=== PATIENT | female | born 1955 | race Caucasian/White ===

== ENCOUNTER 2016-09-30 16:37 | Emergency (ER) | payer MEDICAID ==
[~2016-09-30 16:37] MED LIST: AMO500 PO; ASPIR 8181 MG PO; COL100 PO; DITROPAN XL10 MG PO; HUMI; HYDRALAZINE HCL25 MG PO; HYDROCHLOROTHIA25 MG PO; LAC PO; LANTUS SOLOS100 U/M1 SQ; METFORMIN ER500 M1 PO; METFORMIN HCL850 MG PO; METOPROLOL TART25 M1 PO; MOTRIN800 MG PO; NORCO1 TA2 PO; PRAVACHOL10 MG PO; PROZ20 PO; TRAMADOL HCL50 MG PO; ZESTRIL20 MG PO
[2016-09-30 16:50] VITALS: BP 134/91
== END 2016-09-30 20:00 | disposition left against medical advice (07) ==
LOC: ED 16:37
DX: Z53.21 Procedure and treatment not carried out due to patient leaving prior to being seen by health care provider (principal)

== ENCOUNTER 2016-10-18 10:51 | Inpatient (IN) | payer MEDICAID ==
[~2016-10-18] VITALS: Ht 165.1 cm; Wt 124.7 kg
[2016-10-18 11:59] LABS: BASOPHIL % 0.3 % (0-2); PLATELET COUNT 309 x10^3mcL (130-400); RED CELL DISTRIBUTION WIDTH 14.3 % (11.5-14.5)
[2016-10-18 12:02] LABS: CALCIUM 8.9 mg/dL (8.5-10.1); CARBON DIOXIDE 30.2 mmol/L (21-32); CHLORIDE SERUM 99 mmol/L (98-107); CREATININE SERUM 0.7 mg/dL (0.6-1.0); GFR1 > 60 mL/min; GLUCOSE SERUM 259 mg/dL (74-106); POTASSIUM SERUM 3.8 mmol/L (3.5-5.1); SODIUM SERUM 135 mmol/L (136-145)
[2016-10-18 12:07] LABS: ALBUMIN 3.3 g/dL (3.4-5.0); ALKALINE PHOSPHATASE 94 U/L (46-116); ALT/SGPT 44 U/L (14-59); AST/SGOT 40 U/L (15-37); BILIRUBIN TOTAL 0.35 mg/dL (0.20-1.00); TOTAL PROTEIN, SERUM 7.4 g/dL (6.4-8.2)
[2016-10-18 14:00] VITALS: BP 154/76
[2016-10-18 14:15] LABS: CHOLESTEROL/HDL RATIO 5.1; MAGNESIUM 1.7 mg/dL (1.8-2.4); T3 TOTAL 1.06 ng/mL
[2016-10-18 14:18] LABS: FREE T4 0.96 ng/dL (0.76-1.46); FREE THYROXINE INDEX 2.1 ug/dL (1.4-4.5); T4(THYROXINE) 6.8 ug/dL (4.7-13.3)
[2016-10-18 14:26] LABS: PHOSPHOROUS 3.9 mg/dL (2.5-4.9)
[2016-10-18 18:22] VITALS: BP 117/56
[2016-10-19 04:43] LABS: CALCIUM 8.6 mg/dL (8.5-10.1); CHLORIDE SERUM 102 mmol/L (98-107); CREATININE SERUM 0.8 mg/dL (0.6-1.0); GFR1 > 60 mL/min; GLUCOSE SERUM 225 mg/dL (74-106); MAGNESIUM 1.7 mg/dL (1.8-2.4); PHOSPHOROUS 5.7 mg/dL (2.5-4.9); POTASSIUM SERUM 4.3 mmol/L (3.5-5.1); SODIUM SERUM 138 mmol/L (136-145)
[2016-10-19 04:53] LABS: BASOPHIL % 0.6 % (0-2); PLATELET COUNT 320 x10^3mcL (130-400); RED CELL DISTRIBUTION WIDTH 14.5 % (11.5-14.5)
[2016-10-19 06:02] VITALS: BP 112/60
[2016-10-19 07:40] VITALS: BP 130/74
[2016-10-19 10:07] VITALS: BP 107/63
[2016-10-19 15:12] LABS: microscopic required? YES; urine erythrocyte 2+ (NEGATIVE)
[2016-10-19 15:16] LABS: AMPHETAMINE QUAL UR NONE DETECTED (NEG <=1000)
[2016-10-19 18:14] VITALS: BP 133/79
[2016-10-19 18:16] VITALS: BP 133/79
[2016-10-19] MEDS ORDERED: ADV200 PO (18:16)
[2016-10-19] MEDS ORDERED: METOPROLOL TART25 M1 PO (18:18)
[2016-10-19 18:46] VITALS: BP 133/79
== END 2016-10-19 19:10 | disposition home or self-care (01) | DRG 203 ==
LOC: ED 10:51 → DU 12:45
PROVIDERS: Emergency Medicine; ADMIT Family Medicine
DX: M94.0 Chondrocostal junction syndrome [Tietze] (principal); I50.43 Acute on chronic combined systolic (congestive) and diastolic (congestive) heart failure; E44.0 Moderate protein-calorie malnutrition; E83.42 Hypomagnesemia; D68.69 Other thrombophilia; E11.65 Type 2 diabetes mellitus with hyperglycemia; I10 Essential (primary) hypertension; E78.5 Hyperlipidemia, unspecified; M19.90 Unspecified osteoarthritis, unspecified site; F32.89 Other specified depressive episodes; Z79.84 Long term (current) use of oral hypoglycemic drugs; Z79.4 Long term (current) use of insulin; Z79.82 Long term (current) use of aspirin
CPT/HCPCS: 80307; 82962; 83880; 84439; J1815; J7030; Q0092

== ENCOUNTER 2017-02-28 13:33 | Emergency (ER) | payer MEDICAID ==
[~2017-02-28] VITALS: Ht 162.6 cm; Wt 119.3 kg
[~2017-02-28 13:33] MED LIST changes: +ADV200 PO
[2017-02-28 17:15] VITALS: BP 138/72
== END 2017-02-28 17:15 | disposition home or self-care (01) ==
LOC: ED 13:33
DX: G89.29 Other chronic pain (principal); M25.562 Pain in left knee; M25.561 Pain in right knee; I10 Essential (primary) hypertension; E11.9 Type 2 diabetes mellitus without complications; E78.5 Hyperlipidemia, unspecified; E66.9 Obesity, unspecified; F32.9 Major depressive disorder, single episode, unspecified
CPT/HCPCS: J1170; J1885; Q0092; Q0162

== ENCOUNTER 2017-05-22 14:17 | Emergency (ER) | payer MEDICAID ==
[2017-05-22 17:51] VITALS: BP 150/98
== END 2017-05-22 17:51 | disposition home or self-care (01) ==
LOC: ED 14:17
DX: K04.7 Periapical abscess without sinus (principal); E11.9 Type 2 diabetes mellitus without complications; I10 Essential (primary) hypertension; E78.00 Pure hypercholesterolemia, unspecified; E66.01 Morbid (severe) obesity due to excess calories; F32.9 Major depressive disorder, single episode, unspecified
CPT/HCPCS: 82962; J0690; J1885

== ENCOUNTER 2018-09-10 20:24 | Emergency (ER) | payer OTHER, MEDICAID ==
[~2018-09-10] VITALS: Ht 172.7 cm; Wt 121.6 kg
[2018-09-10 20:37] VITALS: Ht 172.7 cm; Wt 121.6 kg
[2018-09-10 21:24] LABS: CALCIUM 8.8 mg/dL (8.5-10.1); CARBON DIOXIDE 31.8 mmol/L (21-32); CHLORIDE SERUM 97 mmol/L (98-107); CREATININE SERUM 0.9 mg/dL (0.6-1.0); GFR1 > 60 mL/min; GLUCOSE SERUM 250 mg/dL (74-106); POTASSIUM SERUM 3.9 mmol/L (3.5-5.1); SODIUM SERUM 134 mmol/L (136-145)
[2018-09-10 21:25] LABS: BASOPHIL % 0.8 % (0-2); PLATELET COUNT 305 x10^3mcL (130-400); RED CELL DISTRIBUTION WIDTH 13.5 % (11.5-14.5)
[2018-09-10 21:28] LABS: ALKALINE PHOSPHATASE 103 U/L (46-116); ALT/SGPT 31 U/L (14-59); AST/SGOT 29 U/L (15-37); BILIRUBIN TOTAL 0.3 mg/dL (0.20-1.00)
[2018-09-10 21:29] LABS: ALBUMIN 3.2 g/dL (3.4-5.0)
[2018-09-11 00:33] VITALS: BP 154/78
== END 2018-09-11 00:33 | disposition home or self-care (01) ==
LOC: ED 20:24
DX: J11.1 Influenza due to unidentified influenza virus with other respiratory manifestations (principal); I10 Essential (primary) hypertension; E11.9 Type 2 diabetes mellitus without complications; Z90.49 Acquired absence of other specified parts of digestive tract; Z98.890 Other specified postprocedural states
CPT/HCPCS: 36415; 82962; J1885

== ENCOUNTER 2019-01-23 13:18 | Inpatient (IN) | payer OTHER, MEDICAID ==
[~2019-01-23] VITALS: Ht 165.1 cm; Wt 119.8 kg
[~2019-01-23 13:18] MED LIST changes: -METFORMIN HCL850 MG PO; +METFORMIN HYDR500 M1 PO; -PRAVACHOL10 MG PO; +PRAVACHOL20 MG PO
[2019-01-23 13:41] VITALS: Ht 165.1 cm; Wt 119.8 kg
--- NOTE | 2019-01-23 13:47 | NUR ---
PT BIB FAMILY C/C SHIN FEET/LEGS SWELLING WITH BURNING STS X [address] SARAH RIVERA
--- NOTE | 2019-01-23 13:54 | NUR ---
DR NAZARIO AT BEDSIDE TO [facility]
--- NOTE | 2019-01-23 14:09 | NUR ---
XRAY AT BEDSIDE
--- NOTE | 2019-01-23 14:41 | NUR ---
PLEASE ENTER FULL NAMES OF CORN MILLER/RN Patient data collected by (CORN MILLER):VIVEK SHI Assessment reviewed and completed by (RN): ELIZABETH ROSAS
[2019-01-23 14:45] LABS: BASOPHIL % 0.5 % (0-2); PLATELET COUNT 279 x10^3mcL (130-400)
[2019-01-23 14:49] LABS: RED CELL DISTRIBUTION WIDTH 14.6 % (11.5-14.5)
[2019-01-23 14:50] LABS: CALCIUM 8.6 mg/dL (8.5-10.1); CARBON DIOXIDE 32.2 mmol/L (21-32); CHLORIDE SERUM 103 mmol/L (98-107); CREATININE SERUM 0.7 mg/dL (0.6-1.0); GFR1 > 60 mL/min; GLUCOSE SERUM 362 mg/dL (74-106); POTASSIUM SERUM 4.2 mmol/L (3.5-5.1); SODIUM SERUM 140 mmol/L (136-145)
[2019-01-23 14:58] LABS: ALKALINE PHOSPHATASE 79 U/L (46-116); ALT/SGPT 26 U/L (14-59); AST/SGOT 21 U/L (15-37); BILIRUBIN TOTAL 0.3 mg/dL (0.20-1.00); TOTAL PROTEIN, SERUM 6.8 g/dL (6.4-8.2); URIC ACID 2.9 mg/dL (2.6-6.0)
[2019-01-23 15:02] LABS: ALBUMIN 2.9 g/dL (3.4-5.0); CHOLESTEROL 107 mg/dL (<200); HDL CHOLESTEROL 34 mg/dL (40-60)
--- NOTE | 2019-01-23 15:14 | NUR ---
SEVERAL PREVIOUS EKG TESTS ATTEMPTED ON PT WITH MULTIPLE TECHNICIANS. RADHIKA MCKEON CALLED DUE TO EKG DISRUPTION AND EXPLAINED POSSIBLE ELECTROMECHANICAL DISSOCIATION. DR. NAZARIO NOTIFIED OF ISSUE AND POSTERIOR EKG ORDERED. WITH GAIN LEVEL ON EKG MACHINE AT X4 NORMAL SIZE, POSTERIOR EKG WAS SUCCESSFUL.
[2019-01-23] MEDS ORDERED: NOVOLOG MIX 70/33 ML SC (16:00)
[2019-01-23] MEDS ORDERED: EFFER-K10 MEQ PO (16:00)
[2019-01-23] MEDS ORDERED: KAPSPARGO SPRIN25 MG PO (16:01)
[2019-01-23] MEDS ORDERED: ZESTRIL20 MG PO (16:02)
[2019-01-23] MEDS ORDERED: TOPROL XL25 MG PO (16:02)
[2019-01-23] MEDS ORDERED: AZOR 10-20 MG1 EACH PO (16:04)
[2019-01-23] MEDS ORDERED: HYDROCHLOROTHIA25 MG PO (16:05)
--- NOTE | 2019-01-23 16:40 | NUR ---
NOTED PT SLEEPING AT THIS TIME FAMILY AT BEDSIDE
[2019-01-23 16:50] LABS: FREE T4 0.88 ng/dL (0.76-1.46); FREE THYROXINE INDEX 1.8 ug/dL (1.4-4.5); T4(THYROXINE) 6.1 ug/dL (4.7-13.3)
[2019-01-23 16:54] LABS: T3 TOTAL 1.05 ng/mL
--- NOTE | 2019-01-23 17:15 | NUR ---
RECEIVED PATIENT FROM ED VIA GURNEY ACCOMPANIED BY ED NURSE. PATIENT A/O X4, AMBULATED SELF TO BED, GAIT STEADY NO DISTRESS NOTED. TELE # 2 APPLIED, DENIES CHEST PAIN. BREATHING EVEN AND UNLABBORED ON ROOM AIR, DENIES SOB, NO DISTRESS NOTED. EDEMA NOTED TO BLE, PER PATIENT HAS BEEING GOING ON FOR 1 MONTH. PATIENT DENIES ANY PAIN. IV TO LFA H/L INTACT AND PATENT. PATIENT ORIENTED TO ROOM. INSTRUCTED TO CALL FOR ASSISTANCE IF NEEDED. SAFETY PRECAUTIONS MAINTAINED. WILL MONITOR.
[2019-01-23 17:53] VITALS: BP 118/72
--- NOTE | 2019-01-23 18:00 | NUR ---
PATIENT SITTING UP AT EDGE OF BED EATING DINNER, NO DISTRESS NOTED. FRIEND TEZ AT BEDSIDE. SAFETY PRECAUTIONS MAINTAINED.
--- NOTE | 2019-01-23 19:00 | NUR ---
PATIENT RESTING IN BED COMFORTABLY NO DISTRESS NOTED, NO ACUTE CHANGES NOTED. IV TO LFA H/L INTACT AND PATENT. ALL NEEDS ATTENDED TO. SAFETY PRECAUTIONS MAINTAINED. WILL ENDORSE CARE TO ONCOMING NURSE.
--- NOTE | 2019-01-23 19:05 | NUR ---
RECEIVED REPORT FROM DAY SHIFT RN, ALL QUESTIONS AND CONCERNS ADDRESSED. PT IN IN RM 217 BED A RESTING IN LOW FOWLERS POSITION. PT IS A/O X4, SPEECH IS CLEAR AND FOLLOWS COMMANDS. CHEST RISE AND FALL EQUAL AND UNLABORED AND LS CLEAR. PT HAS BILATERAL LOWER LEG EDEMA, +2. PULSES MODERATE AND EQUAL TO BLE+BUE. VS STABLE. NO SIGNS OR COMPLAINTS OF ACUTE DISTRESS. BED LEFT IN THE LOWEST POSITION AND CALL LIGHT LEFT WITHIN REACH.
[2019-01-23 21:13] VITALS: BP 137/61
--- NOTE | 2019-01-23 22:04 | NUR ---
DAUGHTER CALLED, UPDATES GIVEN, DAUGHTERS NUMBER [phone] MICHAEL
[2019-01-24 05:44] VITALS: BP 129/61
[2019-01-24 06:15] LABS: CALCIUM 9.3 mg/dL (8.5-10.1); CARBON DIOXIDE 31.6 mmol/L (21-32); CHLORIDE SERUM 101 mmol/L (98-107); CREATININE SERUM 0.7 mg/dL (0.6-1.0); GFR1 > 60 mL/min; GLUCOSE SERUM 249 mg/dL (74-106); POTASSIUM SERUM 4.2 mmol/L (3.5-5.1); SODIUM SERUM 140 mmol/L (136-145)
[2019-01-24 06:16] LABS: BASOPHIL % 0.4 % (0-2); PLATELET COUNT 315 x10^3mcL (130-400)
[2019-01-24 07:17] LABS: RED CELL DISTRIBUTION WIDTH 14.6 % (11.5-14.5)
--- NOTE | 2019-01-24 07:30 | NUR ---
RECEIVED PATIENT AWAKE/ALERT SAT UP AT SIDE OF BED EATING HER BREAKFAST, DENIES CHEST PAIN, TELE #2 SR HR 82. IV TO LFA INTACT AND SL NOTED. CALL LIGHT WITHIN REACH.
[2019-01-24 09:12] VITALS: BP 138/62
--- NOTE | 2019-01-24 09:57 | NUR ---
PATIENT AWAKE/ALERT ON THE PHONE NO COMPLAINS. ALL PO MEDS ADMINISTERED. NEEDS MET. CALL LIGHT WITHIN REACH.
--- NOTE | 2019-01-24 11:14 | NUR ---
DR. URBINA WITH RESIDENT SEEN PATIENT AND DISCUSS POC FOR UNCONTROLLED DM AND PAIN IN BLE DUE TO NEUROPATHY. WILL PLACE ON NEURONTIN AND ADJUST INSULIN.
--- NOTE | 2019-01-24 11:51 | NUR ---
PATIENT LAYING IN BED NO COMPLAIN, REPLACED NEW ELECTRODES, GAVE 9 UNITS FOR BS 284. NEEDS MET. CALL LIGHT WITHIN REACH.
--- NOTE | 2019-01-24 12:47 | NUR ---
CHANGED TO MED-SURG PER DR. SPEARS; TELE #2 REMOVED AND RETURN TO [place]
[2019-01-24] MEDS ORDERED: RELION HUMUL100 U/ML SC (13:06)
[2019-01-24] MEDS ORDERED: LANTUS SOLOS100 U/M1 SQ (13:07)
[2019-01-24 14:11] VITALS: BP 117/66
[2019-01-24 14:34] VITALS: BP 117/66
--- NOTE | 2019-01-24 15:28 | NUR ---
CALL DTR MARCE AT [phone] NO ANSWER AND UNABLE TO LEAVE MESSAGE. PATIENT LAYING IN BED TECH AT BEDSIDE PERFORM US VENOUS. WILL ASK PATIENT TO CALL DTR WHEN TEST IS DONE.
--- NOTE | 2019-01-24 16:27 | NUR ---
DISCHARGE INSTRUCTION AND PRESCRIPTIONS EXPLAINED TO SISTER HERE AT BEDSIDE; INSTRUCT TO F/U WITH PCP APPT WAS MADE BUT PER SISTER NO LONGER SEE DR. MIRELES AND SEE NEW DOCTOR IN [facility]; ADVISE TO CALL PCP AND MAKE APPT WITHIN 1 WEEK. PATIENT AND SISTER VERBALIZE UNDERSTAND.
--- NOTE | 2019-01-24 16:45 | NUR ---
RON[place] WHEEL PATIENT TO LOBBY WITH SISTER ACCOMPANIED, ALL BELONGINGS WITH PATIENT.
== END 2019-01-24 16:43 | disposition home or self-care (01) | DRG 947 ==
LOC: ED 13:18 → MU 15:46 → DU 15:46 → MU 01-24 12:43
PROVIDERS: Emergency Medicine; ADMIT Internal Medicine
DX: R60.9 Edema, unspecified (principal); E43 Unspecified severe protein-calorie malnutrition; Z68.41 Body mass index [BMI] 40.0-44.9, adult; E11.42 Type 2 diabetes mellitus with diabetic polyneuropathy; E11.65 Type 2 diabetes mellitus with hyperglycemia; R07.89 Other chest pain; I10 Essential (primary) hypertension; M17.0 Bilateral primary osteoarthritis of knee; M19.041 Primary osteoarthritis, right hand; M19.042 Primary osteoarthritis, left hand; F32.9 Major depressive disorder, single episode, unspecified; G47.30 Sleep apnea, unspecified; E78.5 Hyperlipidemia, unspecified; E66.01 Morbid (severe) obesity due to excess calories; Z79.84 Long term (current) use of oral hypoglycemic drugs; Z79.82 Long term (current) use of aspirin; Z79.4 Long term (current) use of insulin
CPT/HCPCS: 82962; 83880; 84439; G0378; Q0092